=== PATIENT | male | born 1960 | race Caucasian/White ===

== ENCOUNTER 2021-04-03 15:30 | Emergency (ER) | payer MEDICARE ==
[~2021-04-03] VITALS: Ht 188 cm; Wt 85.0 kg
[2021-04-03 15:37] VITALS: BP 130/76
[2021-04-03] MEDS ORDERED: ondansetron/PF 4mg/2ml inj IV ONE (16:10)
[2021-04-03] MEDS ORDERED: normal saline 1000ML IV soln IVB ONE (16:10)
[2021-04-03 16:42] LABS: BASOPHILS % (AUTO) 0.4 % (0-1); EOSINOPHILS % (AUTO) 0 % (0-6); HEMOGLOBIN 16.7 g/dl (14.0-17.9); LYMPHOCYTES # (AUTO) 0.8 X10'3 (1.1-4.8); LYMPHOCYTES % (AUTO) 11.4 % (21-51); MEAN CORPUSCULAR HEMOGLOBIN 31.5 PG (27.0-31.0); MEAN CORPUSCULAR HGB CONC 34.7 g/dL (33.0-36.5); MEAN CORPUSCULAR VOLUME 90.7 FL (78-98); MEAN PLATELET VOLUME 9.9 FL (7.4-10.4); MONOCYTES # (AUTO) 0.5 X10'3 (0-0.9); MONOCYTES % (AUTO) 8.3 % (2-12); NEUTROPHILS # (AUTO) 5.3 X10'3 (1.8-7.7); NEUTROPHILS % (AUTO) 79.9 % (42-75); PLATELET COUNT 133 X10'3 (140-440); RED CELL DISTRIBUTION WIDTH 12.4 % (11.5-14.5); WHITE BLOOD COUNT 6.6 X10'3 (4.5-11.0)
[2021-04-03 16:48] LABS: ALANINE AMINOTRANSFERASE 35 U/L (12-78); ALBUMIN/GLOBULIN RATIO 0.7 (1.1-1.5); ALKALINE PHOSPHATASE 67 IU/L (46-116); ANION GAP 12 (8-16); ASPARTATE AMINO TRANSFERASE 39 U/L (10-37); BILIRUBIN,TOTAL 0.7 MG/DL (0.1-1.0); BLOOD UREA NITROGEN 18 MG/DL (7-18); BUN/CREATININE RATIO 16.1 (5.4-32.0); CALCIUM 8.5 MG/DL (8.5-10.1); CHLORIDE 98 MMOL/L (99-107); CREATININE 1.12 MG/DL (0.60-1.10); GLUCOSE 106 MG/DL (70-104); LIPASE 65 U/L (73-393); POTASSIUM 3.8 MMOL/L (3.5-5.1); SODIUM 135 MMOL/L (135-145); TOTAL CARBON DIOXIDE 24.6 MMOL/L (24-32); TOTAL PROTEIN 7.1 G/DL (6.4-8.2); eGFR 66 ML/MIN
[2021-04-03] MEDS ORDERED: ibuprofen tablet 400 MG TABLET PO ONE (16:55)
[2021-04-03] MEDS ORDERED: DEC4T PO (17:10)
== END 2021-04-03 17:31 | disposition home or self-care (01) ==
LOC: ER 15:30
DX: U07.1 COVID-19 (principal); R11.2 Nausea with vomiting, unspecified; Z79.899 Other long term (current) drug therapy; Z88.8 Allergy status to other drugs, medicaments and biological substances
CPT/HCPCS: 36415; 71045; 80053; 83690; 85025; 87635; 96361; 96374; 99284; C9803; J2405; J7030

== ENCOUNTER 2023-03-06 11:48 | Day surgery (SDC) | payer MEDICARE ==
[2023-03-01 16:41] LABS: ALBUMIN 3.8 G/DL (3.4-5.0); ALBUMIN/GLOBULIN RATIO 1.2 (1.1-1.5); ALKALINE PHOSPHATASE 49 IU/L (46-116); BASOPHILS % (AUTO) 0.8 % (0-1); BLOOD UREA NITROGEN 14 MG/DL (7-18); BUN/CREATININE RATIO 13.2 (10.0-20.0); CALCIUM 8.8 MG/DL (8.5-10.1); CHLORIDE 104 MMOL/L (99-107); CREATININE 1.06 MG/DL (0.60-1.10); EOSINOPHILS # (AUTO) 0.1 X10'3 (0-0.9); EOSINOPHILS % (AUTO) 1.4 % (0-6); LYMPHOCYTES # (AUTO) 1.9 X10'3 (1.1-4.8); LYMPHOCYTES % (AUTO) 34.8 % (21-51); MEAN CORPUSCULAR HEMOGLOBIN 31.5 PG (27.0-31.0); MEAN CORPUSCULAR HGB CONC 33.5 g/dL (33.0-36.5); MEAN CORPUSCULAR VOLUME 93.9 FL (78-98); MEAN PLATELET VOLUME 9.5 FL (7.4-10.4); MONOCYTES # (AUTO) 0.4 X10'3 (0-0.9); MONOCYTES % (AUTO) 6.8 % (2-12); NEUTROPHILS # (AUTO) 3.1 X10'3 (1.8-7.7); NEUTROPHILS % (AUTO) 56.2 % (42-75); PRE OP ALT 21 U/L (30-65); PRE OP ANION GAP 7 (8-16); PRE OP AST 12 U/L (10-37); PRE OP BILIRUB, TOTAL 0.9 MG/DL (0.0-1.0); PRE OP GLUCOSE 89 MG/DL (70-104); PRE OP HEMATOCRIT 48.5 % (42.0-52.0); PRE OP HEMOGLOBIN 16.3 g/dL (14.0-17.9); PRE OP PLATELET COUNT 142 X10'3 (140-440); PRE OP SODIUM 140 MMOL/L (135-145); PRE OP WHITE BLOOD COUNT 5.5 10'3 (4.8-10.8); RED BLOOD COUNT 5.17 X10'6 (4.70-6.10); RED CELL DISTRIBUTION WIDTH 12.9 % (11.5-14.5); TOTAL CARBON DIOXIDE 28.9 MMOL/L (24-32); TOTAL PROTEIN 6.9 G/DL (6.4-8.2); eGFR 70 ML/MIN
[~2023-03-06] VITALS: Ht 188 cm; Wt 89.3 kg
[2023-03-06] VITALS (17 sets, daily range): BP systolic 118–140; BP diastolic 62–93; PULSE 65–83; RESP 9–18; TEMP 98.4; O2SAT 95–99
[~2023-03-06 11:48] MED LIST: CLON0.5T4 PO; CLON0.5T5 PO; cefazolin 2gm/D5W 100mL 100 ML IV ONE; famotidine 20mg tablet PO ONE; ringers solution, lacted 1,000 ML IV SCH; tamsulosin 0.4mg capsule PO ONE
[2023-03-06] MEDS ORDERED: BUPIVAcaine/PF 2.5mg/ml (0.25%) 10ml vial ONE (13:44)
[2023-03-06] MEDS ORDERED: LIDOcaine 1% 30ml preserv. free vial ONE (13:44)
[2023-03-06] MEDS ORDERED: sevoflurane 250ml liquid IH ONE (13:50)
[2023-03-06] MEDS ORDERED: acetaminophen 1000 MG/100ml vial IV ONE (13:50)
[2023-03-06] MEDS ORDERED: fentaNYL/PF 50MCG/1 ML 2ML syringe ONE (13:55)
[2023-03-06] MEDS ORDERED: midazolam 1 mg/ML 2ml injection ONE (13:57)
[2023-03-06] MEDS ORDERED: ondansetron/PF 4mg/2ml inj IV PRN (14:10)
[2023-03-06] MEDS ORDERED: meperidine/PF 25mg/ml syringe IV PRN ×3 (14:10)
[2023-03-06] MEDS ORDERED: morphine 4 MG/ML inj SYRINge IV PRN (14:10)
[2023-03-06] MEDS ORDERED: morphine 2 MG/ML inj. syringe IV PRN (14:10)
[2023-03-06] MEDS ORDERED: ringers solution, lacted 1,000 ML IV SCH (14:10)
[2023-03-06] MEDS ORDERED: BUPIVAcaine/PF 2.5mg/ml (0.25%) 10ml vial IJ ONE (14:34)
[2023-03-06] MEDS ORDERED: LIDOcaine 1% 30ml preserv. free vial IJ ONE (14:36)
[2023-03-06] MEDS ORDERED: propofol inj 20 ML IV ONE (15:10)
[2023-03-06] MEDS ORDERED: dexamethasone sod phosphate 4mg/ml inj. ONE (15:10)
[2023-03-06] MEDS ORDERED: neostigmine methylsulfate 1 MG/ML 10ml vial ONE (15:10)
[2023-03-06] MEDS ORDERED: LIDOcaine 1%/PF 5ML 10 MG/ML VIAL ONE (15:10)
[2023-03-06] MEDS ORDERED: ondansetron/PF 4mg/2ml inj ONE (15:10)
[2023-03-06] MEDS ORDERED: rocuronium 10mg/ml inj IV ONE (15:10)
[2023-03-06] MEDS ORDERED: glycopyrrolate 0.2mg/ml inj ONE (15:10)
[2023-03-06] MEDS ORDERED: HYDROcodone/acetaminophen 5mg/325mg tablet PO PRN (15:50)
[2023-03-06] MEDS ORDERED: LidoCAINE 2% Topical Jelly 11mL syringe TOP ONE (18:35)
== END 2023-03-06 20:00 | disposition home or self-care (01) ==
LOC: PRE-OP 11:48
PROVIDERS: ATTEND Surgery
DX: K40.20 Bilateral inguinal hernia, without obstruction or gangrene, not specified as recurrent (principal); K42.0 Umbilical hernia with obstruction, without gangrene; F41.9 Anxiety disorder, unspecified; G43.909 Migraine, unspecified, not intractable, without status migrainosus; Z79.899 Other long term (current) drug therapy; Z98.890 Other specified postprocedural states
CPT/HCPCS: 36415; 49592; 49650; 80053; 82948; 85025; 93005; C1781; J0131; J0690; J1100; J2250; J2405; J2704; J2710; J3010; J3490; J7030; J7120; Z7506; Z7508; Z7512; A4215; A4314; A4618